=== PATIENT | female | born 1975 | race Caucasian/White ===

== ENCOUNTER 2018-05-25 11:17 | Emergency (ER) | payer BC, OTHER ==
[2018-05-25 11:27] VITALS: BP 131/91; PULSE 89; RESP 18; TEMP 98.5
--- NOTE | 2018-05-25 12:10 | XR ---
EXAMINATION TYPE: XR wrist complete LT DATE OF EXAM: 05/25/2018 CLINICAL HISTORY: pain TECHNIQUE: Frontal, lateral and oblique images of the left wrist are obtained. COMPARISON: None. FINDINGS: There is no acute fracture/dislocation evident. The joint spaces appear within normal felipe its. The overlying soft tissue appears unremarkable. IMPRESSION: There is no acute fracture or dislocation seen. ICD 10 NO FRACTURE, INITIAL EVALUATION
--- NOTE | 2018-05-25 12:12 | XR ---
EXAMINATION TYPE: XR hand complete RT DATE OF EXAM: 05/25/2018 CLINICAL HISTORY: pain TECHNIQUE: Frontal, lateral and oblique images of the right hand are obtained. COMPARISON: None. FINDINGS: There is no acute fracture/dislocation evident. The joint spaces appear within normal limi ts. The overlying soft tissue appears unremarkable. IMPRESSION: There is no acute fracture or dislocation ICD 10 NO FRACTURE, INITIAL EVALUATION
--- NOTE | 2018-05-25 12:31 | ED ---
Upper Extremity HPI - General Chief Complaint: Extremity Injury, Upper Stated Complaint: lt arm injury Time Seen by Provider: 05/25/18 11:54 Source: patient Mode of arrival: ambulatory Limitations: no limitations - History of Present Illness Initial Comments: 42-year-old female with past medical history of peripheral neuropathy, fibromyalgia presenting today for chief complaint of left wrist pain. Patient states that she was walking down her back deck last night when she tripped losing her balance hitting her left wrist on the deck rail. Pt immediately noted pain in her left wrist. Pt denies hitting, LOC, dizziness, visual changes , chest pain or shortness breath prior to fall, injury to any other extremity. Patient denies numbness, tingling, loss of sensation of the left upper extremity. Patient noticed bruising and pain to palpation along the lateral aspect of the left wrist and presents for evaluation. Patient has not taken any medication for pain management. Remainder of ROS (-). Pt appears well upon presentation. - Related Data Home Medications Medication Instructions Recorded Confirmed Bisoprolol-Hctz 2.5-6.25 mg [Ziac 1 tab PO DAILY 01/04/14 02/23/16 2.5-6.25 MG] lamoTRIgine [LaMICtal] 200 mg PO QAM 01/04/14 02/23/16 Montelukast [Singulair] 10 mg PO DAILY 03/24/14 02/23/16 Albuterol Nebulized [Ventolin 2.5 mg INHALATION RT-Q6H PRN 02/22/16 02/23/16 Nebulized] Butalb/Acetaminophen/Caffeine 1 tab PO BID PRN 02/22/16 02/23/16 [Dtcurc-Lazhvjkh-Zncy 50-325-40] Diazepam 10 mg PO BID 02/22/16 02/23/16 FLUoxetine HCL [Fluoxetine HCl] 60 mg PO DAILY 02/22/16 02/23/16 Hydrocodone/Acetaminophen 1 tab PO BID 02/22/16 02/23/16 [Hydrocodon-Acetaminophen 5-325] Ipratropium [place] [Atrovent Hfa] 2 puff INHALATION RT-QID 02/22/16 02/23/16 Pantoprazole Sodium 40 mg PO DAILY 02/22/16 02/23/16 Pregabalin [Lyrica] 75 mg PO BID 02/22/16 02/23/16 diphenhydrAMINE [Benadryl] 25 mg PO BID PRN 02/22/16 02/23/16 lamoTRIgine [Lamotrigine] 100 mg PO HS 02/22/16 02/23/16 Previous Rx's Medication Instructions Recorded Loratadine [Claritin] 10 mg PO DAILY #30 tab 01/04/14 predniSONE 20 mg PO BID #10 tab 02/22/16 Allergies Allergy/AdvReac Type Severity Reaction Status Date / Time aspartame AdvReac Vomiting Verified 02/23/16 20:53 [From Nutrasweet Aspartame] Review of Systems ROS Statement: Those systems with pertinent positive or pertinent negative responses have been documented in the HPI. ROS Other: All systems not noted in ROS Statement are negative. Constitutional: Denies: as per HPI, fever, chills, night sweats Eyes: Denies: vision change ENT: Denies: ear pain, throat pain Respiratory: Denies: cough, dyspnea, wheezes, hemoptysis, stridor Cardiovascular: Denies: chest pain, palpitations Gastrointestinal: Denies: abdominal pain, nausea, vomiting Genitourinary: Denies: urgency, dysuria Musculoskeletal: Reports: arthralgia. Denies: back pain, joint swelling Neurological: Denies: numbness, paresthesias, confusion, abnormal gait Past Medical History Past Medical History: Asthma, GERD/Reflux, Hypertension Additional Past Medical History / Comment(s): arthritis, fibromyalgia History of Any Multi-Drug Resistant Organisms: None Reported Past Surgical History: Adenoidectomy, Section, Cholecystectomy, Hysterectomy, Orthopedic Surgery, Tonsillectomy Additional Past Surgical History / Comment(s): right ankle migraines lesions seen with mri on the brain Past Anesthesia/Blood Transfusion Reactions: Postoperative Nausea & Vomiting ( PONV) Past Psychological History: Anxiety, Bipolar, Depression, Panic Disorder Smoking Status: Current every day smoker Past Alcohol Use History: Occasional Past Drug Use History: Marijuana - Past Family History Mother Family Medical History: Cancer, Fibromyalgia, Hypertension, Neurologic Disorder General Exam - General Exam Comments Initial Comments: General: The patient is awake and alert, in no distress, and does not appear acutely ill. Eye: Pupils are equal, round and reactive to light, extra-ocular movements are intact. No nystagmus. There is normal conjunctiva bilaterally. No signs of icterus. Cardiovascular: There is a regular rate and rhythm. No murmur, rub or gallop is appreciated. Respiratory: Lungs are clear to auscultation, respirations are non-labored, breath sounds are equal. No wheezes, stridor, rales, or rhonchi. Musculoskeletal: Ecchymosis over the lateral aspect of the left wrist. No soft tissue swelling. Normal ROM at the left wrist with mild discomfort with flexion/ extension, tenderness to palpation over the area of ecchymosis. Strength 5/5. Sensation intact of the UE. Radial pulses equal bilaterally 2+. No pain to palpation of the left hand. Negative snuffbox tenderness. Neurological: A&O x 3. CN II-XII intact, There are no obvious motor or sensory deficits. Coordination appears grossly intact. Speech is normal. Skin: Skin is warm and dry and no rashes or lesions are noted. Psychiatric: Cooperative, appropriate mood & affect, normal judgment. Limitations: no limitations Course Vital Signs 05/25/18 11:24 Temperature 98.5 F Pulse Rate 89 Respiratory 18 Rate Blood Pressure 131/91 O2 Sat by Pulse 98 Oximetry Medical Decision Making - Medical Decision Making PE revealed contusion of the left wrist. Pt neurovascularly intact, full ROM at wrist. No snuffbox tenderness. Pt given toradol for pain mgmt. X-ray negative for fracture or dislocation. Patient given RICE instruction. Patient told to take ibuprofen and tylenol for pain mgmt. Case discussed with Dr. Bueno who agrees with impression and plan. pt discharged in stable condition. Return parameters discussed in detail with patient, denies questions at this time. She was instructed to follow up with primary care provider one to 2 days. She was instructed to follow-up with orthopedic surgery through primary care referral as pain persists for greater than 1 week. Disposition Clinical Impression: Wrist contusion Disposition: HOME SELF-CARE Condition: Good Instructions: Osteoarthritis (ED), Contusion in Adults (ED), Wrist Sprain (ED) Additional Instructions: Please use medication as discussed. Please follow-up with family doctor in the next 2 days.. Please return to emergency room if the symptoms increase or worsen or for any other concerns. Is patient prescribed a controlled substance at d/c from ED?: No Referrals: Jonathon Soliman MD [Primary Care Provider] - 1-2 days Time of Disposition: 12:24
[2018-05-25] MEDS ORDERED: KETOROLAC 30 MG/ML 1 ML VIAL IM STA (12:36)
== END 2018-05-25 12:49 | disposition home or self-care (01) ==
LOC: EC 11:17
DX: S60.212A Contusion of left wrist, initial encounter (principal); J45.909 Unspecified asthma, uncomplicated; I10 Essential (primary) hypertension; K21.9 Gastro-esophageal reflux disease without esophagitis; F31.9 Bipolar disorder, unspecified; F41.0 Panic disorder [episodic paroxysmal anxiety]; M79.7 Fibromyalgia; G62.9 Polyneuropathy, unspecified; F17.200 Nicotine dependence, unspecified, uncomplicated; Z79.899 Other long term (current) drug therapy; Z88.8 Allergy status to other drugs, medicaments and biological substances; W01.198A Fall on same level from slipping, tripping and stumbling with subsequent striking against other object, initial encounter; Y93.01 Activity, walking, marching and hiking
CPT/HCPCS: 73110; 73130; 99283; 96372; J1885